=== PATIENT | male | born 1935 | race Caucasian/White ===

== ENCOUNTER 2024-06-14 19:35 | Observation (INO) ==
[2024-06-14] MEDS: cefTRIAXone 1 gm/50 mL D5W 1 GM/50 ML BAG IV SCH (21:11)
[2024-06-14] MEDS: NS 0.9% 1000 ml BAG 1,000 ML IV SCH (22:01)
[2024-06-15 05:04] LABS: ABS Basophils 0.1 10^3/uL (0.0-0.1); ABS Eosinophils 0.1 10^3/uL (0.0-0.5); ABS Lymphocytes 1.4 10^3/uL (1.0-4.8); ABS Monocytes 1.3 10^3/uL (0.0-1.1); ABS Neutrophils 10.8 10^3/uL (1.5-7.6); ABS Nucleated RBC 0.02 10^3/ul; Eosinophil % 0.8 %; Hematocrit 38.8 % (38-53); Lymphocyte % 10.3 %; Mean Corpuscular Hemoglobin 29.1 pg (27-33); Mean Corpuscular Hgb Conc 33.6 g/dL (31-36); Mean Corpuscular Volume 86.7 fL (80-97); Nucleated Red Blood Cells % 0.1 %/100WBC (0.0-0.8); Platelet Count 365 10^3/uL (150-450); Red Blood Count 4.47 10^6/uL (4.06-5.63); Red Cell Distribution Width 14.5 % (12-17); White Blood Count 13.6 10^3/uL (3.6-10.2)
[2024-06-15 05:32] LABS: Calcium 8.3 mg/dL (8.6-10.3); Creatinine, Serum 1.59 mg/dL (0.67-1.17); Potassium 4.3 mmol/L (3.5-5.0); eGFR CKD-EPI 41.5 (>60)
[2024-06-15] MEDS: cefTRIAXone 1 gm/50 mL D5W 1 GM/50 ML BAG IV SCH (19:43)
[2024-06-16] MEDS: hydrALAZINE 20 mg/ml 1 ML Vial IV IV SLOW PU PRN (02:14)
[2024-06-16] MEDS: Enoxaparin 30 MG/0.3 ML SYR SUBCUT SCH (10:55)
[2024-06-16 12:01] LABS: Urine Appearance Clear; Urine Bilirubin Negative (Negative); Urine Blood 2+ (Negative); Urine Color Yellow; Urine Glucose Trace (Negative); Urine Ketones Negative (Negative); Urine Nitrite Negative (Negative); Urine Protein 1+ (>=30 mg/dL) (Negative); Urine Specific Gravity 1.019 (1.002-1.030); Urine Urobilinogen 1+ (Negative); Urine pH 5.5 (5.0-8.0)
[2024-06-16 12:58] LABS: Urine Bacteria Absent /HPF (Absent); Urine Red Blood Cell 3+(>10/hpf) /HPF (0-Trace); Urine White Blood Cell 2+(11-20/hpf) /HPF (0-Trace)
[2024-06-18 11:13] LABS: Calcium 8.5 mg/dL (8.6-10.3); Creatinine, Serum 1.61 mg/dL (0.67-1.17); Magnesium 2.2 mg/dL (1.9-2.7); Potassium 4.3 mmol/L (3.5-5.0); eGFR CKD-EPI 40.9 (>60)
[2024-06-18] MEDS: Lactated Ringers 1000 ml BAG 1,000 ML IV SCH (15:53)
[2024-06-18 16:12] LABS: Uric Acid 8.3 mg/dL (4.4-7.6)
[2024-06-19 09:09] VITALS: BP 160/71
== END 2024-06-19 13:49 ==
LOC: ED 19:35 → EDHOLD 19:35 → SUATTDRO 20:16 → MED 06-15 13:29
PROVIDERS: ADMIT Hospitalist; ATTEND Hospitalist